=== PATIENT | male | born 1990 | race African-American/Black ===

== ENCOUNTER 2019-04-28 20:58 | Emergency (ER) | payer SELFPAY ==
[~2019-04-28] VITALS: Ht 190.5 cm; Wt 82.0 kg
[2019-04-28] MEDS ORDERED: LIDOCAINE 1%/EPI 1:100,000 10 ML VIAL IJ ONE (21:45)
[2019-04-28] MEDS ORDERED: HYDROCODONE/ACETAMINOPHEN 5/325MG TABLET PO ONE (21:45)
[2019-04-28] MEDS ORDERED: LIDOCAINE HCL/EPINEPHRINE 1%-EPI 1:100,000 20 ML VIAL IJ SCH (22:05)
[2019-04-28] MEDS ORDERED: KETOROLAC 60MG/2ML VIAL IM ONE (23:45)
[2019-04-29 06:11] VITALS: BP 119/73
== END 2019-04-29 06:17 | disposition home or self-care (01) ==
LOC: ER 23:24
DX: S06.9X9A Unspecified intracranial injury with loss of consciousness of unspecified duration, initial encounter (principal); S01.01XA Laceration without foreign body of scalp, initial encounter; M54.2 Cervicalgia; M79.672 Pain in left foot; Y08.02XA Assault by strike by baseball bat, initial encounter; W18.39XA Other fall on same level, initial encounter; Y93.89 Activity, other specified; Y92.89 Other specified places as the place of occurrence of the external cause
CPT/HCPCS: 12001; 70450; 71045; 72125; 72141; 99284; J3490; Z7610; J1885